=== PATIENT | female | born 1965 | race Caucasian/White ===

== ENCOUNTER → 2022-01-18 | Outpatient (CLI) | payer OTHER ==
[~2022-01-18] MED LIST: ADMELOG SO100 UNIT/1 SQ; ALDACTONE100 MG PO; CONSTULOSE10 GM/15 M PO; DICLOFENAC SODI75 MG PO; ELIQUIS 5 MG TAB5 MG PO; IPRAT-ALBUT 0.5-3 ML NEB; KLOR-CON M1010 MEQ PO; LASIX TAB 20 MG20 MG PO; LEVAQUIN500 MG PO; LIPITOR TAB 2020 MG PO; MEDROL DOSEPAK 24 MG PO; METFORMIN HCL500 MG PO; NEURONTIN 400400 MG PO; NOVOLOG FL100 UNIT/1 SQ; SINGULAIR10 MG PO; TAMIFLU 75 MG C75 MG PO; VENTOLIN HFA 66.7 GM INH; VITAMIN D5000 UNIT PO; ZANTAC 150 MG150 MG PO; ZOFRAN ODT8 MG PO; ZUBSOLV 5.7-1.1 EACH SL
== END ==
LOC: KOH-I 15:00
DX: R06.02 Shortness of breath (principal)
CPT/HCPCS: 71046